=== PATIENT | female | born 2000 | race Two or more races ===

== ENCOUNTER 2020-03-24 15:34 | Outpatient (REF) | payer OTHER, SELFPAY ==
[2020-03-24 17:25] LABS: Hemoglobin 11.1 g/dl (12.0-16.0); Mean Corpuscular Hemoglobin 24.4 pg (27.0-33.0); Mean Corpuscular Volume 81.5 fL (80-98); Mean Platelet Volume 10.1 fL (9.4-12.3); Platelet Count 449 X10*3/uL (160-400); Red Blood Count 4.54 X10*6/uL (4.20-5.50); Red Cell Distribution Width 17.5 % (11.0-16.0); White Blood Count 15.6 X10*3/uL (4.8-10.8)
[2020-03-24 18:10] LABS: Thyroid Stimulating Hormone 0.76 uIU/mL (0.32-4.0)
[2020-03-25 08:47] LABS: Prolactin 11.7 ng/mL
[2020-03-25 11:09] LABS: BV Int Neg Control Negative (Negative); BV Int Pos Control Positive (Positive)
[2020-03-27 17:22] LABS: DHEA Sulfate 194 mcg/dL (51-321)
[2020-03-30 16:22] LABS: Testosterone, Free 1.9 pg/mL (0.1-6.4); Testosterone, Total 33 ng/dL (2-45)
[2020-04-18 12:42] LABS: CT PCR NOT DETECTED (Not Detect.); NG PCR NOT DETECTED (Not Detect.)
== END 2020-03-24 15:35 | disposition home or self-care (01) ==
LOC: HO.LAB 15:34
PROVIDERS: Visit Provider Advanced Practice Midwife
DX: N93.9 Abnormal uterine and vaginal bleeding, unspecified (principal); N92.1 Excessive and frequent menstruation with irregular cycle; N94.6 Dysmenorrhea, unspecified; Z11.8 Encounter for screening for other infectious and parasitic diseases; Z11.3 Encounter for screening for infections with a predominantly sexual mode of transmission; Z87.42 Personal history of other diseases of the female genital tract
CPT/HCPCS: 36415; 82627; 83498; 84146; 84402; 84403; 84443; 85027; 87480; 87491; 87510; 87591; 87660

== ENCOUNTER 2020-04-28 15:33 | Outpatient (REF) | payer OTHER, SELFPAY ==
--- NOTE | 2020-04-28 15:36 | US_ITS ---
EXAMINATION: US PELVIS COMPLETE CLINICAL INFORMATION: Abnormal uterine/vaginal bleeding. COMPARISON: None TECHNIQUE: Transabdominal and transvaginal imaging of pelvis is performed. FINDINGS: The uterus is retroverted measuring 9.0 cm in length, 4.2 cm in AP and 4.7 cm wide. The uterus has homogeneous echotexture with an endometrial thickness of 0.33 cm. Right ovary measures 3.59 x 2.07 x 2.13 cm and volume 8.29 mL. Previously it measured 5.6 x 4.5 x 4.5 cm. Left ovary measures 5.19 x 2.15 x 2.90 cm and volume 16.94 mL. Previously it measured 3.6 x 2.0 x 2.2 cm. There is a trace amount of free fluid visualized. US/US transvaginal IMPRESSION: Unremarkable uterus and ovaries. Trace amount of free fluid in the cul-de-sac.
--- NOTE | 2020-04-28 15:36 | US_ITS ---
EXAMINATION: US PELVIS COMPLETE CLINICAL INFORMATION: Abnormal uterine/vaginal bleeding. COMPARISON: None TECHNIQUE: Transabdominal and transvaginal imaging of pelvis is performed. FINDINGS: The uterus is retroverted measuring 9.0 cm in length, 4.2 cm in AP and 4.7 cm wide. The uterus has homogeneous echotexture with an endometrial thickness of 0.33 cm. Right ovary measures 3.59 x 2.07 x 2.13 cm and volume 8.29 mL. Previously it measured 5.6 x 4.5 x 4.5 cm. Left ovary measures 5.19 x 2.15 x 2.90 cm and volume 16.94 mL. Previously it measured 3.6 x 2.0 x 2.2 cm. There is a trace amount of free fluid visualized. US/US pelvic complete IMPRESSION: Unremarkable uterus and ovaries. Trace amount of free fluid in the cul-de-sac.
== END 2020-04-28 15:34 | disposition home or self-care (01) ==
LOC: HO.HMGCX 15:33
PROVIDERS: Visit Provider Advanced Practice Midwife
DX: N93.8 Other specified abnormal uterine and vaginal bleeding (principal)
CPT/HCPCS: 76830; 76856

== ENCOUNTER → 2020-05-12 11:17 | Outpatient (BNVA) | payer OTHER, SELFPAY | PROVIDERS: Visit Provider Advanced Practice Midwife ==

== ENCOUNTER 2020-06-19 09:18 | Outpatient (REF) | payer OTHER, SELFPAY | END 2020-06-19 09:19 | disposition home or self-care (01) | LOC: HO.MDS 09:18 | PROVIDERS: Visit Provider Internal Medicine Medical Oncology | DX: D50.9 Iron deficiency anemia, unspecified (principal) | CPT/HCPCS: 96365; J1439 ==

== ENCOUNTER 2020-06-25 07:54 | Outpatient (REF) | payer OTHER, SELFPAY | END 2020-06-25 07:55 | disposition home or self-care (01) | LOC: HO.MDS 07:54 | PROVIDERS: Visit Provider Internal Medicine Medical Oncology | DX: D50.9 Iron deficiency anemia, unspecified (principal) | CPT/HCPCS: 96365; J1439 ==

== ENCOUNTER → 2020-08-19 15:15 | Outpatient (BNVA) | payer OTHER, SELFPAY | PROVIDERS: Visit Provider Advanced Practice Midwife ==

== ENCOUNTER 2020-09-14 10:15 | Outpatient (REF) | payer OTHER, SELFPAY | END 2020-09-14 10:16 | disposition home or self-care (01) | LOC: HO.LAB 10:15 | PROVIDERS: Visit Provider Nurse Practitioner Family | DX: J02.9 Acute pharyngitis, unspecified (principal); H66.003 Acute suppurative otitis media without spontaneous rupture of ear drum, bilateral; R09.81 Nasal congestion; Z20.822 Contact with and (suspected) exposure to COVID-19 | CPT/HCPCS: U0003; U0005 ==

== ENCOUNTER 2020-12-29 14:41 | Outpatient (REF) | payer OTHER, SELFPAY | END 2020-12-29 14:42 | disposition home or self-care (01) | LOC: HO.HMGCLDS 14:41 | PROVIDERS: PCP Internal Medicine; Visit Provider Internal Medicine | DX: Z20.822 Contact with and (suspected) exposure to COVID-19 (principal) | CPT/HCPCS: C9803; U0003; U0005 ==

== ENCOUNTER 2021-02-10 13:06 | Outpatient (REF) | payer OTHER, SELFPAY ==
[2021-02-11 05:47] LABS: CT PCR NOT DETECTED (Not Detect.); NG PCR NOT DETECTED (Not Detect.)
[2021-02-11 11:04] LABS: BV Int Neg Control Negative (Negative); BV Int Pos Control Positive (Positive)
== END 2021-02-10 13:07 | disposition home or self-care (01) ==
LOC: HO.LAB 13:06
PROVIDERS: PCP Internal Medicine; Visit Provider Advanced Practice Midwife
DX: Z30.011 Encounter for initial prescription of contraceptive pills (principal); N92.6 Irregular menstruation, unspecified; Z20.2 Contact with and (suspected) exposure to infections with a predominantly sexual mode of transmission
CPT/HCPCS: 87480; 87491; 87510; 87591; 87660; 88142

== ENCOUNTER 2021-04-13 13:47 | Outpatient (REF) | payer OTHER, SELFPAY ==
[2021-04-13 16:35] LABS: MANUAL DIFF FLAG NO
[2021-04-13 16:40] LABS: Basophils Percent Auto 0.3 % (0-2); Eosinophils Absolute Auto 0.3 X10*3/uL (0.0-0.4); Eosinophils Percent Auto 2.4 % (0-4); Hematocrit 41.1 % (37.0-47.0); Hemoglobin 13.3 g/dl (12.0-16.0); Imm Gran Abs Auto 0.06 X10*3/uL (0.00-0.03); Imm Gran Pct Auto 0.5 % (0.0-0.4); Lymphocytes Absolute Auto 3.7 X10*3/uL (1.2-4.9); Lymphocytes Percent Auto 31.6 % (20-40); Mean Corpuscular HGB Conc 32.4 g/dl (31.0-35.0); Mean Corpuscular Hemoglobin 30.1 pg (27.0-33.0); Mean Platelet Volume 9.8 fL (9.4-12.3); Monocytes Absolute Auto 0.9 X10*3/uL (0.1-1.2); Monocytes Percent Auto 7.3 % (2-11); Neutrophils Absolute Auto 6.8 x10*3/uL (2.0-8.3); Neutrophils Percent Auto 57.9 % (45-73); Platelet Count 418 X10*3/uL (160-400); Red Blood Count 4.42 X10*6/uL (4.20-5.50); Red Cell Distribution Width 12.2 % (11.0-16.0); White Blood Count 11.7 X10*3/uL (4.8-10.8)
[2021-04-13 17:04] LABS: Alanine Aminotransferase 14 U/L (0-31); Albumin Level 4.4 g/dL (3.5-5.0); Alkaline Phosphatase 67 U/L (39-117); Anion Gap 12 (12-20); Aspartate Amino Transferase 14 U/L (5-31); Bilirubin Total 0.4 mg/dL (0.0-1.0); Blood Urea Nitrogen 19 mg/dL (9-16); Calcium 9.8 mg/dL (8.4-10.2); Carbon Dioxide 26 mmol/L (22-29); Chloride 103 mmol/L (96-108); Estimated Glomerular Filt Rate > 60; Glucose Random 72 mg/dL (60-115); Iron 82 mcg/dL (30-160); Percent Iron Saturation 21 % (15-50); Potassium 4.2 mmol/L (3.3-5.1); Sodium 137 mmol/L (135-145); Total Iron Binding Capacity 400 mcg/dL (228-428); Total Protein 7.8 g/dL (6.5-8.0); Unsaturated Iron Binding 318 ug/dL
[2021-04-13 17:24] LABS: TSH reflex Free T4 1.72 uIU/mL (0.32-4.0); Vitamin D 25-OH Total 16.9 ng/mL (>30)
[2021-04-13 17:35] LABS: Folate 10.8 ng/mL (> or = 4.0); Vitamin B12 465 pg/mL (200-900)
== END 2021-04-13 13:48 | disposition home or self-care (01) ==
LOC: HO.HMGCLDS 13:47
PROVIDERS: PCP Internal Medicine; Visit Provider Internal Medicine
DX: N92.0 Excessive and frequent menstruation with regular cycle (principal); R42 Dizziness and giddiness; R55 Syncope and collapse; G44.009 Cluster headache syndrome, unspecified, not intractable; R53.83 Other fatigue; Z87.42 Personal history of other diseases of the female genital tract
CPT/HCPCS: 36415; 80053; 82306; 82607; 82746; 83540; 84443; 85025

== ENCOUNTER → 2021-06-17 13:47 | Outpatient (BNVA) | payer OTHER, SELFPAY | PROVIDERS: Visit Provider Advanced Practice Midwife ==

== ENCOUNTER 2021-11-06 11:29 | Emergency (ER) | payer OTHER, SELFPAY ==
[2021-11-06 12:13] VITALS: BP 127/90; PULSE 77; RESP 18; TEMP 36.9; O2SAT 98; BMI 28.8
[2021-11-06 12:56] LABS: MANUAL DIFF FLAG NO
[2021-11-06 12:57] LABS: Basophils Percent Auto 0.2 % (0-2); Eosinophils Absolute Auto 0.3 X10*3/uL (0.0-0.4); Eosinophils Percent Auto 2.7 % (0-4); Hematocrit 42.2 % (37.0-47.0); Hemoglobin 13.6 g/dl (12.0-16.0); Imm Gran Abs Auto 0.04 X10*3/uL (0.00-0.03); Imm Gran Pct Auto 0.3 % (0.0-0.4); Lymphocytes Absolute Auto 3.5 X10*3/uL (1.2-4.9); Lymphocytes Percent Auto 29.7 % (20-40); Mean Corpuscular HGB Conc 32.2 g/dl (31.0-35.0); Mean Corpuscular Hemoglobin 29.3 pg (27.0-33.0); Mean Corpuscular Volume 90.9 fL (80.0-98.0); Mean Platelet Volume 8.9 fL (9.4-12.3); Monocytes Absolute Auto 0.9 X10*3/uL (0.1-1.2); Monocytes Percent Auto 7.6 % (2-11); Neutrophils Absolute Auto 6.9 x10*3/uL (2.0-8.3); Neutrophils Percent Auto 59.5 % (45-73); Platelet Count 339 X10*3/uL (160-400); Red Blood Count 4.64 X10*6/uL (4.20-5.50); Red Cell Distribution Width 12.8 % (11.0-16.0); White Blood Count 11.7 X10*3/uL (4.8-10.8)
[2021-11-06 13:27] LABS: Anion Gap 15 (12-20); Blood Urea Nitrogen 16 mg/dL (9-16); Calcium 9.6 mg/dL (8.4-10.2); Carbon Dioxide 24 mmol/L (22-29); Chloride 105 mmol/L (96-108); Creatinine Clr Calc Pharmacy 95.5; Estimated Glomerular Filt Rate > 60; Glucose Random 81 mg/dL (60-115); Potassium 4.3 mmol/L (3.3-5.1); Sodium 140 mmol/L (135-145)
== END 2021-11-06 18:41 | disposition left against medical advice (07) ==
PROVIDERS: Emergency Provider Emergency Medicine; PCP Internal Medicine
DX: R20.0 Anesthesia of skin (principal); H53.8 Other visual disturbances
CPT/HCPCS: 36415; 80048; 85025; 99281; 99283

== ENCOUNTER 2022-01-12 12:54 | Emergency (ER) | payer OTHER, SELFPAY ==
[2022-01-12 14:13] VITALS: BP 125/80; PULSE 71; RESP 16; TEMP 36.4; O2SAT 99; BMI 29.8
== END 2022-01-12 18:59 | disposition left against medical advice (07) ==
PROVIDERS: Emergency Provider Emergency Medicine; PCP Internal Medicine
DX: M54.50 Low back pain, unspecified (principal)
CPT/HCPCS: 99281

== ENCOUNTER 2022-02-07 11:49 | Outpatient (REF) | payer OTHER, SELFPAY ==
[2022-02-07 13:42] LABS: HCG Quantitative < 2 mIU/mL; Thyroid Stimulating Hormone 0.53 uIU/mL (0.32-4.0)
[2022-02-07 14:40] LABS: CT PCR NOT DETECTED (Not Detect.); NG PCR NOT DETECTED (Not Detect.)
[2022-02-08 12:37] LABS: BV Int Neg Control Negative (Negative); BV Int Pos Control Positive (Positive)
== END 2022-02-07 11:50 | disposition home or self-care (01) ==
LOC: HO.LAB 11:49
PROVIDERS: PCP Internal Medicine; Visit Provider Advanced Practice Midwife
DX: Z01.419 Encounter for gynecological examination (general) (routine) without abnormal findings (principal); D64.9 Anemia, unspecified; N92.0 Excessive and frequent menstruation with regular cycle; N93.9 Abnormal uterine and vaginal bleeding, unspecified; R42 Dizziness and giddiness; Z87.42 Personal history of other diseases of the female genital tract
CPT/HCPCS: 84443; 84702; 87480; 87491; 87510; 87591; 87660

== ENCOUNTER 2022-07-24 09:08 | Emergency (ER) | payer SELFPAY ==
--- NOTE | ~2022-07-24 | US_ITS ---
EXAMINATION: US PELVIS CLINICAL INFORMATION: Right lower quadrant pain left adnexal cyst on CT. COMPARISON: None available. TECHNIQUE: Ultrasound of the pelvis is performed using both transabdominal and transvaginal transducers along with Doppler. Transvaginal imaging is performed due to inadequate visualization transabdominally. FINDINGS: Uterus: The uterus is anteverted and measures 8.9 x 3.9 x 5.8 cm. The double wall endometrial thickness is 12 mm. The uterus is smooth in contour and has normal myometrial echogenicity. No visible fibroid. Adnexa: Both ovaries are visualized. There is normal color flow to the adnexa. There is no ovarian torsion. There is no pelvic ascites or fluid collection. Right ovary measures 3.1 x 2.1 x 2.1 cm. 6.7 x 6.1 x 3.0 cm, smooth, oblong, cystic left adnexal structure, similar compared with 07/24/2022. Peripheral flow, possibly representing splayed ovarian tissue, equivocal. Small to moderate amount of fluid within the pelvis. US/US pelvic and transvaginal IMPRESSION: 6.7 x 6.1 x 3.0 cm, smooth, oblong, cystic left adnexal structure, similar compared with 07/24/2022. Peripheral flow, possibly representing splayed ovarian tissue, equivocal. Small to moderate amount of fluid within the pelvis.
--- NOTE | ~2022-07-24 | CT_ITS ---
EXAMINATION: CT ABDOMEN AND PELVIS WITH CONTRAST CLINICAL INFORMATION: Right lower quadrant abdominal pain. COMPARISON: Most recent pelvic ultrasound dated 04/28/2020. TECHNIQUE: Multidetector volumetric images were obtained from the superior aspect of the liver through the pubic symphysis following administration 85 mL of Omnipaque 350 intravenous contrast. Sagittal and coronal reformatted images were obtained on the technologist's workstation. Oral contrast: No This CT examination was performed using dose optimization techniques as appropriate, variously including the following: *Automated exposure control *Adjustment of mA and/or kV according to patient size (this includes techniques or standardized protocols for targeted exams where dose is matched to indication/reason for exam; i.e. extremities or head) *Use of iterative reconstruction technique DLP: 436 mGy-cm FINDINGS: LUNG BASES: The visualized lung bases are unremarkable. LIVER, GALLBLADDER, AND BILIARY TREE: The liver is normal in size, shape, and attenuation. No focal hepatic lesion or biliary ductal dilatation is present. The gallbladder is unremarkable with no evidence of radiopaque gallstones, gallbladder wall thickening, or obvious pericholecystic inflammatory changes. PANCREAS: Unremarkable. SPLEEN: Unremarkable. ADRENAL GLANDS: Unremarkable. KIDNEYS AND URETERS: The kidneys are normal in size, shape, and attenuation. No hydronephrosis, hydroureter, or calculi seen. No perinephric stranding. BLADDER: Unremarkable. GASTROINTESTINAL TRACT: No small or large bowel obstruction. No bowel wall thickening or inflammatory change. The appendix is partially visualized within the pelvic free fluid. No appendiceal dilatation. ABDOMINAL WALL: No significant hernia is appreciated. LYMPH NODES: No significant lymphadenopathy. VASCULAR: Unremarkable. PELVIC VISCERA: Unremarkable uterus. Unremarkable right adnexa. The left adnexa appears to demonstrate a thin-walled cyst measuring up to 6.4 cm. Moderate, simple-appearing pelvic free fluid which tracks proximally within the paracolic gutters into the upper abdomen. OSSEOUS STRUCTURES: Unremarkable. CT/CT abdomen pelvis w IV con IMPRESSION: 1. Moderate, simple-appearing pelvic free fluid which tracks proximally within the paracolic gutters into the upper abdomen. Thin-walled left adnexal cyst measuring up to 6.4 cm. Unremarkable right adnexa. Unremarkable uterus. Pelvic ultrasound is recommended to help further evaluate. 2. Partially visualized appendix within the pelvic free fluid. No appendiceal dilatation or inflammatory change to suggest acute appendicitis. 3. No small or large bowel obstruction. No bowel wall thickening or inflammatory change. Fleischner guidelines were followed.
[2022-07-24 09:28] VITALS: BP 115/75; PULSE 75; RESP 16; TEMP 36.6; O2SAT 99; BMI 27.8
[2022-07-24 09:43] LABS: MANUAL DIFF FLAG NO
[2022-07-24 09:45] LABS: Basophils Percent Auto 0.2 % (0-2); Eosinophils Absolute Auto 0.2 X10*3/uL (0.0-0.4); Hematocrit 40.6 % (37.0-47.0); Imm Gran Abs Auto 0.06 X10*3/uL (0.00-0.03); Imm Gran Pct Auto 0.3 % (0.0-0.4); Lymphocytes Absolute Auto 2.9 X10*3/uL (1.2-4.9); Lymphocytes Percent Auto 16.1 % (20-40); Mean Corpuscular Volume 90.4 fL (80.0-98.0); Mean Platelet Volume 9.5 fL (9.4-12.3); Monocytes Absolute Auto 1.2 X10*3/uL (0.1-1.2); Monocytes Percent Auto 6.5 % (2-11); Neutrophils Absolute Auto 13.9 x10*3/uL (2.0-8.3); Neutrophils Percent Auto 75.9 % (45-73); Platelet Count 356 X10*3/uL (160-400); Red Blood Count 4.49 X10*6/uL (4.20-5.50); Red Cell Distribution Width 13.4 % (11.0-16.0); White Blood Count 18.3 X10*3/uL (4.8-10.8)
[2022-07-24 10:09] LABS: Alanine Aminotransferase 16 U/L (0-31); Albumin Level 4.1 g/dL (3.5-5.0); Alkaline Phosphatase 61 U/L (39-117); Anion Gap 12 (12-20); Aspartate Amino Transferase 22 U/L (5-31); Bilirubin Total 1.1 mg/dL (0.0-1.0); Blood Urea Nitrogen 16 mg/dL (9-16); Calcium 9.3 mg/dL (8.4-10.2); Carbon Dioxide 23 mmol/L (22-29); Chloride 108 mmol/L (96-108); Creatinine Clr Calc Pharmacy 102.9; Estimated Glomerular Filt Rate > 60; Glucose Random 89 mg/dL (60-115); Lipase 9 U/L (8-78); Potassium 4.2 mmol/L (3.3-5.1); Sodium 139 mmol/L (135-145); Total Protein 6.9 g/dL (6.5-8.0)
[2022-07-24 10:12] LABS: HCG Quantitative < 2 mIU/mL
--- NOTE | 2022-07-24 10:30 | ED_ITS ---
HPI - Abdominal Pain General Chief Complaint: Abdominal Pain Stated Complaint: lower abd pain/nausea Time Seen by Provider: 07/24/22 10:12 Source: patient and RN notes reviewed Mode of arrival: ambulatory Limitations: no limitations History of Present Illness HPI narrative: This is a 21-year-old female, with a past medical history of anxiety and depression, menorrhagia, and ovarian cyst, who presents to the emergency department today with complaints of acute abdominal pain since 6:00 a.m. this morning. Patient reports that yesterday she was feeling well, went out to dinner at [employer], where she had a steak and 1 alcoholic beverage, she reports that last night she developed chills, vomited once and had 2 episodes of diarrhea, but did not have any abdominal pain. She states that this morning at 6:00 a.m. she woke up with sudden periumbilical abdominal pain and right lower quadrant pain. She states that she tried getting up from her bed but was unable to do so due to the pain. She denies taking any medications to treat her symptoms. She reports associated nausea, no vomiting this morning. She denies history of similar symptoms. Her last menses was 3 weeks ago, she denies chance of , no concern for STIs at this time. She is sexually active with her boyfriend, is not on control. No new sexual partners. Denies any vaginal discharge or bleeding, dysuria, hematuria, urinary urgency frequency. No other complaints or concerns at this time. MD elicited complaint: abdominal pain Onset (ago): hour(s) Pain Consistency: constant Location: periumbilical and RLQ Severity: severe Quality: cramping and stabbing Radiation: none Migration to: no migration Exacerbating factors: movement Relieving factors: nothing Associated symptoms: nausea, vomiting (Yesterday), diarrhea (2 episodes yesterday) and chills Related Data Previous Rx's Medication Instructions Recorded norethindrone acetate 1 mg-ethinyl 1 tab PO DAILY #84 tabs 06/17/21 estradiol 20 mcg tablet () doxycycline hyclate 100 mg capsule 100 mg PO BID #28 caps 07/24/22 Allergies Allergy/AdvReac Type Severity Reaction Status Date / Time penicillamine Allergy Unknown facial Verified 07/24/22 09:31 swelling Penicillins [PENICILLINS] Allergy Unknown RASH Verified 07/24/22 09:31 Review of Systems Review of Systems Constitutional: No Weight loss, No Fever, +Chills, No Night Sweats, No Fatigue, No Malaise ENT/Mouth: No Hearing loss, No Ear Pain, No Nasal Congestion, No Sinus Pain, No Hoarseness, No sore throat, No Rhinorrhea, No Swallowing Difficulty Eyes: No Eye Pain, No Swelling, No Redness, No Foreign Body, No Discharge, No Vision Changes Cardiovascular: No Chest Pain, No SOB, No Dyspnea on Exertion, No Orthopnea, No Edema, No Palpitations Respiratory: No Cough, No Sputum, No Wheezing, No Smoke Exposure, No Dyspnea Gastrointestinal: +Nausea, +Vomiting, +Diarrhea, No Constipation, +Abdominal pain, No Hematochezia, No Melena Genitourinary: No irregular bleeding, No Dysuria, No Urinary Frequency, No Hematuria, No Urinary Incontinence/retention, No Urgency, No Flank Pain, No Urinary Flow Changes, No Hesitancy Musculoskeletal: No joint pain, No Myalgias, No Joint Swelling Skin: No Skin Lesions, No rash Neuro: No Weakness, No Numbness, No Paresthesias, No Loss of Consciousness, No Dizziness, No Headache Psych: No Anxiety/Panic, No Depression, No SI/HI/AH/VH, No Social Issues, Heme/Lymph: No Bruising, No Bleeding,No Lymphadenopathy Endocrine: No Polyuria, No Polydipsia, No Temperature Intolerance Yes all other systems are reviewed and are negative Constitutional: Reports as per [facility] Past Medical History Medical History (Updated 07/24/22 @ 15:19 by SARIKA Daugherty) Anxiety and depression Cyst History of vitamin D deficiency Lactose intolerance in adult Menorrhagia Migraine without aura Near syncope Normochromic normocytic anemia Social anxiety disorder Surgical History No significant past surgical history Family History Family History (Updated 02/22/22 @ 00:32 by Regina Zaman MD) Father Diabetes Mother Essential hypertension Substance use disorder Sister Mental health disorder Maternal Aunt Autistic disorder Other No family history of cancer Social History Social History Household Members: None Housing: Apartment Are you a primary landcare facilitator to a significant other at home: No Do you presently have visiting nurse or other home services: No Alcohol intake: never Patient Tobacco Use Status: Never used Tobacco Smoked in Last 30 Days: No e-Cigarette/Vaping Use: Never Used Use of substances other than those prescribed or required for medical reasons: Yes Substance Use Type: Marijuana Advance Directives: No Advance Directives Information Provided: No Patient : No service: No Current occupational status: employed Sexual orientation: Straight/Heterosexual Gender identity: Female Cognitive needs: No Hearing needs: No Vision needs: No Physical Exam ED Vital Signs: Vital Signs - 24 hr 07/24/22 09:28 07/24/22 11:42 07/24/22 14:21 Temperature 97.9 F 98.1 F Pulse Rate 75 64 59 Respiratory Rate 16 20 12 Blood Pressure 115/75 114/73 122/66 Pulse Oximetry 99 100 100 Oxygen Delivery Method Room Air Room Air Room Air 07/24/22 16:00 Temperature 98.2 F Pulse Rate 65 Respiratory Rate 16 Blood Pressure 107/62 Pulse Oximetry 98 Oxygen Delivery Method Room Air BMI result Body Mass Index 27.8 Const General: cooperative, comfortable and no acute distress Orientation/consciousness: patient oriented x3 Limitations: no limitations HENMT Head: Yes normal to inspection, Yes normocephalic and Yes atraumatic Ears: hearing grossly normal bilaterally General nose exam: Normal external nose present Face and sinus: Yes normal facial exam Mouth: Normal oral and palatal mucosa present, oropharynx normal and moist mucous membranes Throat: Yes posterior oropharynx normal Eyes General: appearance normal, both eyes and all related structures Eyelids: Yes eyelids normal Conjunctivae: conjunctivae normal Sclerae: sclerae normal Pupils: Equal, round and reactive pupils present EOM: EOMs intact bilaterally Neck Neck: Yes normal visual inspection, Yes full ROM and Yes no lymphadenopathy Lymphatic: no lymphadenopathy noted Chest Chest palpation & inspection: normal inspection of the chest Resp Effort & Inspection: normal respiratory effort and able to speak in complete sentences Auscultation: clear to auscultation bilaterally, no crackles, no rales, no rhonchi and no wheezes Cardio Rate: regular rate Rhythm: regular rhythm Heart sounds: S1 normal heart sound present and S2 normal heart sound present GI Other: Abdomen is soft, with tenderness to light palpation over the periumbilical and right lower quadrant. Pain overlying McBurney's point. + guarding. + obturator sign. Negative Miller sign Inspection: Yes normal to inspection Other: Bimanual vaginal exam with cervical motion tenderness, and tenderness with pressure in the right lower abdomen. Cervical os is closed. normal appearance of the cervix, no abnormal vaginal discharge or bleeding. No tenderness on the left. General: Yes Bimanual renal exam normal bilaterally External Female Exam: normal external appearance, normal appearance of the urethra, No external swelling, No lesion, No External ecchymosis (female) and No urethral discharge Speculum Exam - Vagina: normal appearance of the vagina, not erythematous and no swelling Speculum Exam - Cervix: normal appearance of the cervix Skin General skin exam: no rashes or lesions noted Trauma: no lacerations or abrasions Wounds: no wounds Neuro General: patient oriented x3 and moves all extremities Cranial nerves: Yes Equal, round and reactive pupils present Extrem General: Yes normal to inspection Right upper extremity: normal to inspection Left upper extremity: normal to inspection Right lower extremity: normal to inspection Left lower extremity: normal to inspection Course Reevaluation(s) Reevaluation #1: Patient reports that her pain is improving after the morphine. CT abdomen and pelvis reviewed as Moderate, simple-appearing pelvic free fluid which tracks proximally within the paracolic gutters into the upper abdomen. Thin-walled leftadnexal cyst measuring up to 6.4 cm. Unremarkable right adnexa. Unremarkable uterus. Pelvic ultrasound is recommended to help further evaluate. Partially visualized appendix within the pelvic free fluid. Noappendiceal dilatation or inflammatory change to suggest acute appendicitis. She reports her current pain is a 4/10, with movement it does increase. Will obtain ultrasound of the pelvis for further evaluation. Ultrasound pelvic still pending at this time. Toradol 15 mg IM ordered. Time: 12:40 Reevaluation #2: Pelvic/transvaginal ultrasound obtained revealing a 6.7 x 6.1 x 3.0 cm smooth oblong cystic left adnexal structure with small to moderate amount of fluid within the pelvis. Pelvic exam performed, patient does have cervical motion tenderness with tenderness in the right lower quadrant. Patient's symptoms consistent with a potential ruptured cyst but concern for PID given physical examination. Patient has no concerns for STIs however due to clinical examination findings, will treat as PID with ceftriaxone and doxycycline. Pt admits to having PCN allergy with rash, will administer and watch for 20-30 minutes post administration for any adverse reactions. Patient does not have an OBGYN to follow-up with, given there be referral. Advised patient to return with any new or worsening symptoms. Patient would like to be discharged home. Patient stable for discharge Time: 15:58 Reevaluation #3: Patient has no reaction, patient stable for discharge. Time: 16:24 Medical Decision Making Medical Decision Making [facility] Narrative: This is a 21-year-old female, with a past medical history depression, anxiety, and ovarian cyst, who presents emergency department today for evaluation of abdominal pain which started at 6:00 a.m. this morning. On examination, patient's vital signs are within normal limits, tenderness to palpation in the periumbilical and right lower quadrant. Based on examination findings and clinical presentation high suspicion for acute appendicitis. Labs, UA, CT abdomen and pelvis with IV contrast ordered. Patient medicated with 1 L of IV fluids, IV Zofran, and IV morphine. Differential Diagnosis Differential Diagnoses: The differential diagnosis associated with the presentation includes Pelvic inflammatory disease, gonorrhea, chlamydia, Acute appendicitis, ectopic , ovarian torsion, ovarian cyst Admission/Observation Consideration of admission/observation: Escalation of care including admission /observation considered Lab Data [facility] Lab Attestation statement: I reviewed the patient's lab results. Leukocytosis at 18.3, negative beta HCG 07/24/22 09:39 07/24/22 09:39 Labs: Lab Results 07/24/22 07/24/22 07/24/22 Range/Units 09:39 09:39 14:20 WBC 18.3 H (4.8-10.8) X10*3/uL RBC 4.49 (4.20-5.50) X10*6/uL Hgb 13.0 (12.0-16.0) g/dl Hct 40.6 (37.0-47.0) % MCV 90.4 (80.0-98.0) fL MCH 29.0 (27.0-33.0) pg MCHC 32.0 (31.0-35.0) g/dl RDW 13.4 (11.0-16.0) % Plt Count 356 (160-400) X10*3/uL MPV 9.5 (9.4-12.3) fL Immature Gran % (Auto) 0.3 (0.0-0.4) % Neut % (Auto) 75.9 H (45-73) % Lymph % (Auto) 16.1 L (20-40) % Glynn % (Auto) 6.5 (2-11) % Eos % (Auto) 1.0 (0-4) % Baso % (Auto) 0.2 (0-2) % Lymph # (Auto) 2.9 (1.2-4.9) X10*3/uL Glynn # (Auto) 1.2 (0.1-1.2) X10*3/uL Eos # (Auto) 0.2 (0.0-0.4) X10*3/uL Baso # (Auto) 0.0 (0.0-0.2) X10*3/uL Abs Immat Gran (auto) 0.06 H (0.00-0.03) X10*3/uL Absolute Neuts (auto) 13.9 H (2.0-8.3) x10*3/uL Absolute Nucleated RBC 0.000 (0.0-0.012) X10*3/uL Nucleated RBC % (auto) 0.0 (0.0-0.2) /100WBC Sodium 139 (135-145) mmol/L Potassium 4.2 (3.3-5.1) mmol/L Chloride 108 (96-108) mmol/L Carbon Dioxide 23 (22-29) mmol/L Anion Gap 12 (12-20) BUN 16 (9-16) mg/dL Creatinine 0.78 (0.5-1.4) mg/dL Estim Creat Clear Calc 102.9 Estimated GFR > 60 Random Glucose 89 (60-115) mg/dL Calcium 9.3 (8.4-10.2) mg/dL Total Bilirubin 1.1 H (0.0-1.0) mg/dL AST 22 (5-31) U/L ALT 16 (0-31) U/L Alkaline Phosphatase 61 (39-117) U/L Total Protein 6.9 (6.5-8.0) g/dL Albumin 4.1 (3.5-5.0) g/dL Lipase 9 (8-78) U/L Beta HCG, Quant < 2 mIU/mL Urine Color Yellow Urine Appearance Clear Urine pH 5.5 (5.0-9.0) Ur Specific Thayer >= 1.030 H (1.005-1.025) Urine Protein Negative (Neg-Trace) mg/dL Urine Glucose (UA) Negative (Negative) mg/dL Urine Ketones 40 (Negative) mg/dL Urine Blood Negative (Negative) Urine Nitrite Negative (Negative) Ur Leukocyte Esterase Negative (Negative) Independent Interpretation I performed an independent interpretation of an: Ultrasound Interpretation: EXAMINATION:? US PELVIS CLINICAL INFORMATION:? Right lower quadrant pain left adnexal cyst on CT. COMPARISON: None available. TECHNIQUE: Ultrasound of the pelvis is performed using both transabdominal and transvaginal transducers along with Doppler. Transvaginal imaging is performed due to inadequate visualization transabdominally. FINDINGS: Uterus: The uterus is anteverted and measures 8.9 x 3.9 x 5.8 cm. The double wall endometrial thickness is 12 mm.? The uterus is smooth in contour and has normal myometrial echogenicity. ? No visible fibroid. Adnexa: Both ovaries are visualized. There is normal color flow to the adnexa. There is no ovarian torsion.? There is no pelvic ascites or fluid collection. Right ovary measures 3.1 x 2.1 x 2.1 cm. 6.7 x 6.1 x 3.0 cm, smooth, oblong, cystic left adnexal structure, similar compared with 07/24/2022. Peripheral flow, possibly representing splayed ovarian tissue, equivocal. Small to moderate amount of fluid within the pelvis. US/US pelvic and transvaginal IMPRESSION: ? 6.7 x 6.1 x 3.0 cm, smooth, oblong, cystic left adnexal structure, similar compared with 07/24/2022. Peripheral flow, possibly representing splayed ovarian tissue, equivocal. ? Small to moderate amount of fluid within the pelvis. ? Dictated By: Adria Camara FINDINGS: LUNG BASES: The visualized lung bases are unremarkable.? LIVER, GALLBLADDER, AND BILIARY TREE: The liver is normal in size, shape, and attenuation. No focal hepatic lesion or biliary ductal dilatation is present. The gallbladder is unremarkable with no evidence of radiopaque gallstones, gallbladder wall thickening, or obvious pericholecystic inflammatory changes.? PANCREAS: Unremarkable.? SPLEEN: Unremarkable.? ADRENAL GLANDS: Unremarkable.? KIDNEYS AND URETERS: The kidneys are normal in size, shape, and attenuation. No hydronephrosis, hydroureter, or calculi seen. No perinephric stranding. BLADDER: Unremarkable.? GASTROINTESTINAL TRACT: No small or large bowel obstruction. No bowel wall thickening or inflammatory change. The appendix is partially visualized within the pelvic free fluid. No appendiceal dilatation.? ABDOMINAL WALL: No significant hernia is appreciated.? LYMPH NODES: No significant lymphadenopathy. VASCULAR: Unremarkable. PELVIC VISCERA: Unremarkable uterus. Unremarkable right adnexa. The left adnexa appears to demonstrate a thin-walled cyst measuring up to 6.4 cm. Moderate, simple-appearing pelvic free fluid which tracks proximally within the paracolic gutters into the upper abdomen.? OSSEOUS STRUCTURES: Unremarkable.? CT/CT abdomen pelvis w IV con IMPRESSION: 1. Moderate, simple-appearing pelvic free fluid which tracks proximally within the paracolic gutters into the upper abdomen. Thin-walled left adnexal cyst measuring up to 6.4 cm. Unremarkable right adnexa. Unremarkable uterus. Pelvic ultrasound is recommended to help further evaluate. ? 2. Partially visualized appendix within the pelvic free fluid. No appendiceal dilatation or inflammatory change to suggest acute appendicitis. ? 3. No small or large bowel obstruction. No bowel wall thickening or inflammatory change. ? Fleischner guidelines were followed. Dictated By: Leighton Parmar MD Radiology Impression Discussion of test interpretation with radiology: I have reviewed the radiologist's reading. External Record Review External record reviewed: Inpatient record, Office record, Outpatient record, Prior outpatient labs, Prior outpatient radiology, Primary care record and Outside ED record Medications Administered Discontinued Medications Generic Name Dose Route Start Last Admin Trade Name Freq PRN Reason Stop Dose Admin Ceftriaxone Sodium 500 mg/ 0 mg 07/24/22 15:23 07/24/22 16:02 Lidocaine HCl 1 ml IM 07/24/22 15:24 1 kit ONCE ONE Administration Sodium Chloride 1,000 mls @ 999 mls/hr 07/24/22 10:24 07/24/22 13:13 Ns IVCONT 07/24/22 11:24 Infused .Q1H1M ONE Infusion Iohexol 100 ml 07/24/22 11:01 07/24/22 11:02 Iohexol 350 Mg/Ml 100 Ml Infus..Btl IV 07/24/22 11:02 85 ml ONCE ONE Administration Ketorolac Tromethamine 15 mg 07/24/22 13:47 07/24/22 14:37 Ketorolac Tromethamine 15 Mg/Ml Vial IVPUSH 07/24/22 13:48 15 mg ONCE ONE Administration Morphine Sulfate 2 mg 07/24/22 10:24 07/24/22 10:37 Morphine Sulfate 2 Mg/Ml Cartridge IVPUSH 07/24/22 10:25 2 mg ONCE ONE Administration Protocol Ondansetron HCl 4 mg 07/24/22 10:24 07/24/22 10:37 Ondansetron Hcl 4 Mg/2 Ml Vial IVPUSH 07/24/22 10:25 4 mg ONCE ONE Administration Discharge Plan Discharge Clinical Impression: Abdominal pain Patient Disposition: Home, Self-Care Instructions: Acute Abdominal Pain (ED) Additional Instructions: Take ibuprofen as needed for your pain. Take antibiotic as prescribed, finish the entire course. We are sending swabs for further testing, we will call you with any positive results. We had also treated you with ceftriaxone. Your CT scan today showed a moderate, simple appearing pelvic free fluid, which could be due to a ruptured a cyst. It also showed an adnexal cyst measuring up to 6.[address] abdomen did not show evidence of appendicitis. The ultrasound revealed same findings. Please drink plenty of fluids get plenty of rest. You may apply a warm compress to her abdomen for relief. Please follow-up with an OBGYN regarding the symptoms and findings, I have given you a referral today. If any new or worsening symptoms occur please return for re-evaluation. Prescriptions: New doxycycline hyclate 100 mg capsule 100 mg PO BID Qty: 28 0RF No Action norethindrone ac-eth estradiol [04/29 (21)] 1-20 mg-mcg tablet 1 tab PO DAILY Qty: 84 3RF Referrals: Tremaine Mensah MD [Physician] - Interventions: ED Discharge Assessment Last Done: 07/24/22 16:26 Discharge Date/Time: 07/24/22 16:27
[2022-07-24] MEDS: 0.9 % Sodium Chloride 1,000 ML 999 ML IVCONT (10:37)
[2022-07-24] MEDS: ondansetron HCL 4 MG/2 ML VIAL IVPUSH (10:37)
[2022-07-24] MEDS: Morphine Sulfate 2 MG/ML CARTRIDGE IVPUSH (10:37)
[2022-07-24] MEDS: iohexoL 350 MG/ML 100 ML INFUS..BTL IV (11:02)
[2022-07-24 11:42] VITALS: BP 114/73; PULSE 64; RESP 20; TEMP 36.7; O2SAT 100
--- NOTE | 2022-07-24 11:45 | PC.NURSE ---
pt resting quietly in stretcher, watching tv, in no apparent distress. pt sts pain has gone down and medication effective. rr even/unlabored. vss. wctm
[2022-07-24 14:21] VITALS: BP 122/66; PULSE 59; RESP 12; O2SAT 100
[2022-07-24 14:27] LABS: Appearance Urine Clear; Color Urine Yellow; Glucose Urine UA Negative (Negative); Leukocyte Esterase Urine Negative (Negative); Nitrite Urine Negative (Negative); PH 5.5 (5.0-9.0); Specific Gravity - Urine >= 1.030 (1.005-1.025); Urine Blood Negative (Negative); Urine Ketones 40 mg/dL (Negative); Urine Protein Negative (Neg-Trace)
[2022-07-24] MEDS: Ketorolac Tromethamine 15 MG/ML VIAL IVPUSH (14:37)
--- NOTE | 2022-07-24 14:56 | PC.NURSE ---
pt resting quietly in stretcher, watching tv. UCC collected. medicated for pain per mar. no apparent distress. rr even/unlabored. wctm
[2022-07-24 16:00] VITALS: BP 107/62; PULSE 65; RESP 16; TEMP 36.8; O2SAT 98
[2022-07-24] MEDS: cefTRIAXone sodium 500 MG, Lidocaine HCl 1 % MPF 1 ML IM (16:02)
[2022-07-25 00:52] LABS: CT PCR NOT DETECTED (Not Detect.); NG PCR NOT DETECTED (Not Detect.)
[2022-07-25 12:33] LABS: BV Int Neg Control Negative (Negative); BV Int Pos Control Positive (Positive)
== END 2022-07-24 16:27 | disposition home or self-care (01) ==
PROVIDERS: Physician Assistant Medical; Emergency Provider Emergency Medicine
DX: R10.2 Pelvic and perineal pain (principal); R11.2 Nausea with vomiting, unspecified; R10.32 Left lower quadrant pain; R25.2 Cramp and spasm; Z79.899 Other long term (current) drug therapy; Z20.2 Contact with and (suspected) exposure to infections with a predominantly sexual mode of transmission
CPT/HCPCS: 0353U; 36415; 74177; 76830; 76856; 80053; 81003; 83690; 84702; 85025; 87480; 87510; 87660; 96361; 96374; 96375; 99284; 99285; J0696; J1885; J2270; J2405; Q9967

== ENCOUNTER 2023-02-01 11:03 | Emergency (ER) | payer SELFPAY ==
--- NOTE | ~2023-02-01 | US_ITS ---
EXAMINATION: US PELVIS OVARIAN DOPPLER US PELVIS WITH TRANSVAGINAL CLINICAL INFORMATION: Left-sided pelvic pain. COMPARISON: Pelvic ultrasound and CT imaging from 07/24/2022. TECHNIQUE: Ultrasound of the pelvis is performed using both transabdominal and transvaginal transducers along with Doppler. Transvaginal imaging is performed due to inadequate visualization transabdominally. FINDINGS: The uterus has normal contour and echotexture and measures approximately 8.3 x 4.3 x 5.6 cm (cervix to fundus x AP x transverse dimension). The myometrial echotexture is normal. No evidence of uterine leiomyoma. The cervix is normal. The endometrium has normal homogeneous echotexture and measures up to 1.1 cm in AP thickness. On the transvaginal images, the right ovary is 2.8 x 1.5 x 1.7 cm. The left ovary is 5.9 x 4.4 x 5.4 cm and contains a 5 x 4 x 5.6 cm simple cyst. No thick septation or mural nodularity. Color Doppler images with spectral waveforms show presence of normal arterial and venous flow within each ovary. Note that the prior ultrasound from 07/24/2022 showed a simple-appearing cyst in the left ovary measuring up to 5.9 cm maximum dimension. A trace, physiologic amount of simple appearing free fluid is seen within the pelvic cul-de-sac. US/US pelvic ovarian doppler IMPRESSION: Simple cyst of the left ovary measures up to 5.6 cm maximum dimension - a probable benign cyst. Patient is presenting with left-sided pelvic pain. Recommend pelvic ultrasound follow-up (e.g., US follow-up in 3-6 months), if deemed appropriate. Note that a cyst of the left ovary previously measured up to 5.9 cm maximum dimension. No evidence of ovarian torsion.
--- NOTE | ~2023-02-01 | US_ITS ---
EXAMINATION: US PELVIS OVARIAN DOPPLER US PELVIS WITH TRANSVAGINAL CLINICAL INFORMATION: Left-sided pelvic pain. COMPARISON: Pelvic ultrasound and CT imaging from 07/24/2022. TECHNIQUE: Ultrasound of the pelvis is performed using both transabdominal and transvaginal transducers along with Doppler. Transvaginal imaging is performed due to inadequate visualization transabdominally. FINDINGS: The uterus has normal contour and echotexture and measures approximately 8.3 x 4.3 x 5.6 cm (cervix to fundus x AP x transverse dimension). The myometrial echotexture is normal. No evidence of uterine leiomyoma. The cervix is normal. The endometrium has normal homogeneous echotexture and measures up to 1.1 cm in AP thickness. On the transvaginal images, the right ovary is 2.8 x 1.5 x 1.7 cm. The left ovary is 5.9 x 4.4 x 5.4 cm and contains a 5 x 4 x 5.6 cm simple cyst. No thick septation or mural nodularity. Color Doppler images with spectral waveforms show presence of normal arterial and venous flow within each ovary. Note that the prior ultrasound from 07/24/2022 showed a simple-appearing cyst in the left ovary measuring up to 5.9 cm maximum dimension. A trace, physiologic amount of simple appearing free fluid is seen within the pelvic cul-de-sac. US/US pelvic and transvaginal IMPRESSION: Simple cyst of the left ovary measures up to 5.6 cm maximum dimension - a probable benign cyst. Patient is presenting with left-sided pelvic pain. Recommend pelvic ultrasound follow-up (e.g., US follow-up in 3-6 months), if deemed appropriate. Note that a cyst of the left ovary previously measured up to 5.9 cm maximum dimension. No evidence of ovarian torsion.
[2023-02-01 11:11] VITALS: BP 122/77; PULSE 66; RESP 18; TEMP 36.7; O2SAT 99; BMI 26.1
--- NOTE | 2023-02-01 11:15 | ED_ITS ---
HPI - General Adult General Chief complaint: Abdominal Pain Stated complaint: Ovarian pain/Kidney pain History of Present Illness HPI narrative: Left before completion of treatment by ED provider. Related Data Previous Rx's Medication Instructions Recorded norethindrone acetate 1 mg-ethinyl 1 tab PO DAILY #84 tabs 06/17/21 estradiol 20 mcg tablet (June) doxycycline hyclate 100 mg capsule 100 mg PO BID #28 caps 07/24/22 Allergies Allergy/AdvReac Type Severity Reaction Status Date / Time penicillamine Allergy Unknown facial Verified 07/24/22 09:31 swelling Penicillins [PENICILLINS] Allergy Unknown RASH Verified 07/24/22 09:31 [facility] Past Medical History Medical History (Updated 02/04/23 @ 18:40 by SARIKA Handley) Social anxiety disorder Lactose intolerance in adult History of vitamin D deficiency Anxiety and depression Migraine without aura Near syncope Menorrhagia Normochromic normocytic anemia Cyst Surgical History No significant past surgical history Family History Family History (Updated 02/22/22 @ 00:32 by Regina Zaman MD) Father Diabetes Mother Essential hypertension Substance use disorder Sister Mental health disorder Maternal Aunt Autistic disorder Other No family history of cancer Social History Social History Household Members: None Housing: Apartment Are you a primary wild animal caretaker to a significant other at home: No Do you presently have visiting nurse or other home services: No Alcohol intake: never Patient Tobacco Use Status: Never used Tobacco e-Cigarette/Vaping Use: Never Used Substance Use Type: Marijuana Advance Directives: No Advance Directives Information Provided: No service: No Current occupational status: employed Sexual orientation: Straight/Heterosexual Gender identity: Female Cognitive needs: No Hearing needs: No Vision needs: No Physical Exam ED Vital Signs: BMI result Body Mass Index 26.1 Course Course Course Narrative: RME: 22 yold female presents to the ED for left lower pelvic pain radiating towards left kidney. Patient states new dysuria. patient denies any nausea or vomitting. labs ordered. Medical Decision Making Lab Data 02/01/23 11:26 02/01/23 11:26 Labs: Lab Results 10/25/23 10/25/23 Range/Units 11:26 13:30 WBC 13.4 H (4.8-10.8) X10*3/uL RBC 4.43 (4.20-5.50) X10*6/uL Hgb 13.1 (12.0-16.0) g/dl Hct 40.4 (37.0-47.0) % MCV 91.2 (80.0-98.0) fL MCH 29.6 (27.0-33.0) pg MCHC 32.4 (31.0-35.0) g/dl RDW 13.0 (11.0-16.0) % Plt Count 364 (160-400) X10*3/uL MPV 9.2 L (9.4-12.3) fL Immature Gran % (Auto) 0.4 (0.0-0.4) % Neut % (Auto) 60.5 (45-73) % Lymph % (Auto) 28.6 (20-40) % [place] % (Auto) 7.1 (2-11) % Eos % (Auto) 3.1 (0-4) % Baso % (Auto) 0.3 (0-2) % Lymph # (Auto) 3.8 (1.2-4.9) X10*3/uL [place] # (Auto) 1.0 (0.1-1.2) X10*3/uL Eos # (Auto) 0.4 (0.0-0.4) X10*3/uL Baso # (Auto) 0.0 (0.0-0.2) X10*3/uL Abs Immat Gran (auto) 0.06 H (0.00-0.03) X10*3/uL Absolute Neuts (auto) 8.1 (2.0-8.3) x10*3/uL Absolute Nucleated RBC 0.000 (0.0-0.012) X10*3/uL Nucleated RBC % (auto) 0.0 (0.0-0.2) /100WBC Sodium 138 (135-145) mmol/L Potassium 4.2 (3.3-5.1) mmol/L Chloride 107 (96-108) mmol/L Carbon Dioxide 24 (22-29) mmol/L Anion Gap 11 L (12-20) BUN 17 H (9-16) mg/dL Creatinine 0.80 (0.5-1.4) mg/dL Estim Creat Clear Calc 100.4 Estimated GFR > 60 Random Glucose 81 (60-115) mg/dL Calcium 9.8 (8.4-10.2) mg/dL Total Bilirubin 0.6 (0.0-1.0) mg/dL AST 17 (5-31) U/L ALT 11 (0-31) U/L Alkaline Phosphatase 56 (39-117) U/L Total Protein 7.6 (6.5-8.0) g/dL Albumin 4.2 (3.5-5.0) g/dL Beta HCG, Quant < 2 mIU/mL Urine Color Yellow Urine Appearance Clear Urine pH 6.5 (5.0-9.0) Ur Specific [place] >= 1.030 H (1.005-1.025) Urine Protein Negative (Neg-Trace) mg/dL Urine Glucose (UA) Negative (Negative) mg/dL Urine Ketones Trace (Negative) mg/dL Urine Blood Negative (Negative) Urine Nitrite Negative (Negative) Ur Leukocyte Esterase Negative (Negative) Urine Test NEGATIVE (NEGATIVE) Discharge Plan Discharge Clinical Impression: Pelvic pain Patient Disposition: Left Without Being Seen Discharge Date/Time: 02/01/23 17:47
[2023-02-01 11:31] LABS: MANUAL DIFF FLAG NO
[2023-02-01 11:33] LABS: Basophils Percent Auto 0.3 % (0-2); Eosinophils Absolute Auto 0.4 X10*3/uL (0.0-0.4); Eosinophils Percent Auto 3.1 % (0-4); Hematocrit 40.4 % (37.0-47.0); Hemoglobin 13.1 g/dl (12.0-16.0); Imm Gran Abs Auto 0.06 X10*3/uL (0.00-0.03); Imm Gran Pct Auto 0.4 % (0.0-0.4); Lymphocytes Absolute Auto 3.8 X10*3/uL (1.2-4.9); Lymphocytes Percent Auto 28.6 % (20-40); Mean Corpuscular HGB Conc 32.4 g/dl (31.0-35.0); Mean Corpuscular Hemoglobin 29.6 pg (27.0-33.0); Mean Corpuscular Volume 91.2 fL (80.0-98.0); Mean Platelet Volume 9.2 fL (9.4-12.3); Monocytes Percent Auto 7.1 % (2-11); Neutrophils Absolute Auto 8.1 x10*3/uL (2.0-8.3); Neutrophils Percent Auto 60.5 % (45-73); Platelet Count 364 X10*3/uL (160-400); Red Blood Count 4.43 X10*6/uL (4.20-5.50); White Blood Count 13.4 X10*3/uL (4.8-10.8)
[2023-02-01 11:53] LABS: Alanine Aminotransferase 11 U/L (0-31); Albumin Level 4.2 g/dL (3.5-5.0); Alkaline Phosphatase 56 U/L (39-117); Anion Gap 11 (12-20); Aspartate Amino Transferase 17 U/L (5-31); Bilirubin Total 0.6 mg/dL (0.0-1.0); Blood Urea Nitrogen 17 mg/dL (9-16); Calcium 9.8 mg/dL (8.4-10.2); Carbon Dioxide 24 mmol/L (22-29); Chloride 107 mmol/L (96-108); Creatinine Clr Calc Pharmacy 100.4; Estimated Glomerular Filt Rate > 60; Glucose Random 81 mg/dL (60-115); HCG Quantitative < 2 mIU/mL; Potassium 4.2 mmol/L (3.3-5.1); Sodium 138 mmol/L (135-145); Total Protein 7.6 g/dL (6.5-8.0)
[2023-02-01 13:38] LABS: Appearance Urine Clear; Color Urine Yellow; Glucose Urine UA Negative (Negative); Leukocyte Esterase Urine Negative (Negative); Nitrite Urine Negative (Negative); PH 6.5 (5.0-9.0); Specific Gravity - Urine >= 1.030 (1.005-1.025); Urine Blood Negative (Negative); Urine Ketones Trace mg/dL (Negative); Urine Protein Negative (Neg-Trace)
[2023-02-01 13:39] LABS: UPreg QC Valid YES; Urine Pregnancy NEGATIVE (NEGATIVE)
== END 2023-02-01 17:47 | disposition left against medical advice (07) ==
PROVIDERS: Physician Assistant; Emergency Provider Emergency Medicine
DX: R10.2 Pelvic and perineal pain (principal)
CPT/HCPCS: 36415; 76830; 76856; 80053; 81003; 81025; 84702; 85025; 93975; 99282; 99284

== ENCOUNTER 2024-12-16 12:36 | Emergency (ER) | payer SELFPAY ==
--- NOTE | ~2024-12-16 | CT_ITS ---
EXAMINATION: CT HEAD WITHOUT CONTRAST CLINICAL INFORMATION: Head trauma, fall, syncope COMPARISON: None available. TECHNIQUE: Contiguous axial imaging was performed from the skull base to vertex without intravenous administration of contrast. This CT examination was performed using dose optimization techniques as appropriate, variously including the following: *Automated exposure control *Adjustment of mA and/or kV according to patient size (this includes techniques or standardized protocols for targeted exams where dose is matched to indication/reason for exam; i.e. extremities or head) *Use of iterative reconstruction technique DLP: 614 mGY*cm FINDINGS: There is no acute ischemic change. There is no intracranial hemorrhage. There is no mass-effect or midline shift. Basal cisterns and ventricles are within normal limits for age/cerebral volume. Orbits are symmetrical and unremarkable. Paranasal sinuses and mastoid air cells are pneumatized. There are no bony abnormalities. CT/CT head/brain wo IV con IMPRESSION: No acute intracranial abnormality. Electronically signed by: Tristan Nicole MD 12/16/2024 01:57 PM EDT
--- NOTE | ~2024-12-16 | XR_ITS ---
EXAMINATION: XR CHEST CLINICAL INFORMATION: fall, syncope COMPARISON: None available. TECHNIQUE: 2 views of the chest were obtained. FINDINGS: No consolidation pleural effusion or pneumothorax. No hyperinflation. Cardiomediastinal silhouette size is normal. Osseous structures are intact. XR/XR chest 2V IMPRESSION: Normal chest x-ray. Electronically signed by: Bin Puga MD 12/16/2024 02:25 PM EDT
[2024-12-16 13:01] VITALS: BP 119/67; PULSE 55; RESP 16; TEMP 36.4; O2SAT 100; BMI 24.1
--- NOTE | 2024-12-16 13:03 | ED.GENADULT ---
HPI - General Adult General Chief complaint: Head Injury Stated complaint: fall, LOC. Motor skill, memory loss Time Seen by Provider: 12/16/24 14:20 Source: patient Mode of arrival: ambulatory Limitations: no limitations History of Present Illness ED Provider: Dr. Wilks [facility] narrative: This is a 24-year-old female presented hospital today for evaluation of difficult wheel concentration, paresthesia. Patient stated that she had a syncopal episode in the shower on Monday night. She did strike her head against a wall. She does have history of syncope in the past. This for next couple of days she has been having trouble focusing. Patient stated she has been having some trouble with performing test due to this problem. She presents to the ER for further evaluation. Related Data Previous Rx's ?Medication ?Instructions ?Recorded norethindrone acetate 1 mg-ethinyl 1 tab PO DAILY #84 tabs 06/17/21 estradiol 20 mcg tablet (Junel) doxycycline hyclate 100 mg capsule 100 mg PO BID #28 caps 07/24/22 Allergies Allergy/AdvReac Type Severity Reaction Status Date / Time penicillamine Allergy Unknown facial Verified 12/16/24 13:04 swelling Penicillins (PENICILLINS) Allergy Unknown RASH Verified 12/16/24 13:04 Review of Systems Review of Systems: Pertinent review of systems as mentioned in HPI. All other system otherwise negative. [facility] Past Medical History [facility] Narrative: Medical history as mentioned in HPI Medical History (Updated 12/16/24 @ 15:11 by Gayle Wilks DO) Social anxiety disorder Lactose intolerance in adult History of vitamin D deficiency Anxiety and depression Migraine without aura Near syncope Menorrhagia Normochromic normocytic anemia Cyst Surgical History No significant past surgical history Family History Family History (Updated 02/22/22 @ 00:32 by Regina Zaman MD) Father Diabetes Mother Essential hypertension Substance use disorder Sister Mental health disorder Maternal Aunt Autistic disorder Other No family history of cancer Social History Social History Household Members: None Housing: Apartment Are you a primary attending ambulatory care to a significant other at home: No Do you presently have visiting nurse or other home services: No Alcohol intake: never Patient Tobacco Use Status: Never used Tobacco e-Cigarette/Vaping Use: Never Used Substance Use Type: Marijuana Advance Directives: No Advance Directives Information Provided: Yes Do you have a plan to hurt others: No Plan service: No Current occupational status: employed Sexual orientation: Straight/Heterosexual Gender identity: Female Cognitive needs: No Hearing needs: No Vision needs: No Physical Exam ED Exam Exam: General: Pleasant, no distress, interacting appropriately Head: Normacephalic, atraumatic ENT: oral mucosa moist, neck supple, no tracheal deviation Extremities: No limb pain or swelling, no calf tenderness Neurological: Awake and alert, no facial droop noted, good strength in upper and lower extremity no sign of ataxia. Pupils PERRLA, EOMI sensation is intact bilaterally. Skin: Warm and dry Psychiatric: Appropriate mood and thoughts Vital Signs: Vital Signs - 24 hr 12/16/24 13:01 12/16/24 15:04 12/16/24 15:11 Temperature 97.5 F 98.3 F 98.3 F Pulse Rate 55 56 56 Respiratory Rate 16 14 14 Blood Pressure 119/67 115/71 115/71 Pulse Oximetry 100 100 100 Oxygen Delivery Method Room Air Room Air Room Air BMI result Body Mass Index 24.1 Course Course Course Narrative: Rapid medical examination performed in triage by Lanny Watts PA-C. Patient is a 24 year old assigned female at presenting to the emergency department with syncope and a head strike. Detailed physical exam and review of systems are deferred to the meter tester primary. EKG, labs, imaging, and swabs ordered. Patient placed back in the waiting room pending room availability and results. Medical Decision Making Medical Decision Making [facility] Narrative: This is a 24-year-old female presented hospital today after closed head injury on Monday with cognitive difficulty after her injury. Suspect patient likely has a concussion. Given her history CT imaging was performed. No sign patient had chest x-ray performed which is normal. Lab work did show mild leukocytosis 13.4, patient's chemistries unremarkable. UA did not show any signs of significant abnormality. At this time patient appears to be well and stable. Patient will be discharged. Differential Diagnosis Differential Diagnoses: The differential diagnosis associated with the presentation includes Cranial bleed, concussion, epidural hematoma Lab Data [facility] Lab Attestation statement: I reviewed the patient's lab results. 12/16/24 13:15 12/16/24 13:15 Labs: Lab Results 12/16/24 12/16/24 Range/Units 13:15 14:16 WBC 13.4 H (4.8-10.8) X10*3/uL RBC 4.47 (4.20-5.50) X10*6/uL Hgb 13.0 (12.0-16.0) g/dl Hct 39.4 (37.0-47.0) % MCV 88.1 (80.0-98.0) fL MCH 29.1 (27.0-33.0) pg MCHC 33.0 (31.0-35.0) g/dl RDW 13.5 (11.0-16.0) % Plt Count 317 (160-400) X10*3/uL MPV 9.6 (9.4-12.3) fL Immature Gran % (Auto) 0.3 (0.0-0.4) % Neut % (Auto) 58.4 (45-73) % Lymph % (Auto) 30.5 (20-40) % [place] % (Auto) 7.6 (2-11) % Eos % (Auto) 2.8 (0-4) % Baso % (Auto) 0.4 (0-2) % Lymph # (Auto) 4.1 (1.2-4.9) X10*3/uL [place] # (Auto) 1.0 (0.1-1.2) X10*3/uL Eos # (Auto) 0.4 (0.0-0.4) X10*3/uL Baso # (Auto) 0.1 (0.0-0.2) X10*3/uL Abs Immat Gran (auto) 0.04 H (0.00-0.03) X10*3/uL Absolute Neuts (auto) 7.9 (2.0-8.3) x10*3/uL Absolute Nucleated RBC 0.000 (0.0-0.012) X10*3/uL Nucleated RBC % (auto) 0.0 (0.0-0.2) /100WBC PT 11.7 (10.9-12.4) SEC INR 1.0 (0.9-1.1) Sodium 138 (135-145) mmol/L Potassium 4.2 (3.3-5.1) mmol/L Chloride 108 (96-108) mmol/L Carbon Dioxide 23 (22-29) mmol/L Anion Gap 11 L (12-20) BUN 23 H (9-16) mg/dL Creatinine 0.86 (0.5-1.4) mg/dL Estim Creat Clear Calc 82.7 Estimated GFR > 60 Random Glucose 80 (60-115) mg/dL Calcium 9.5 (8.4-10.2) mg/dL Magnesium 1.9 (1.6-2.6) mg/dL Total Bilirubin 0.4 (0.0-1.0) mg/dL AST 34 H (5-31) U/L ALT 17 (0-31) U/L Alkaline Phosphatase 53 (39-117) U/L Troponin I High Sens < 2.7 (<3.5-17.0) ng/L Total Protein 7.7 (6.5-8.0) g/dL Albumin 4.4 (3.5-5.0) g/dL Beta HCG, Quant < 2 mIU/mL Urine Color Yellow Urine Appearance Clear Urine pH 5.5 (5.0-9.0) Ur Specific [place] 1.025 (1.005-1.025) Urine Protein Negative (Neg-Trace) mg/dL Urine Glucose (UA) Negative (Negative) mg/dL Urine Ketones Negative (Negative) mg/dL Urine Blood Negative (Negative) Urine Nitrite Negative (Negative) Ur Leukocyte Esterase Negative (Negative) COVID-19 (ROXANNE) Negative (Negative) COVID-19 Clin Com See Note Influenza Type A (ESTIVEN) Negative (Negative) Influenza Type B (ESTIVEN) Negative (Negative) Influenza A & B Note See Note Independent Interpretation I performed an independent interpretation of an: Plain X-Ray and CT Scan Radiology Impression Discussion of test interpretation with radiology: I have reviewed the radiologist's reading. Discharge Plan Discharge Clinical Impression: Closed head injury Qualifiers: Encounter type: initial encounter Qualified Code(s): S09.90XA - Unspecified injury of head, initial encounter Concussion without loss of consciousness Qualifiers: Encounter type: initial encounter Qualified Code(s): S06.0X0A - Concussion without loss of consciousness, initial encounter Patient Disposition: Home, Self-Care Instructions: Concussion (ED) Prescriptions: No Action doxycycline hyclate 100 mg capsule 100 mg PO BID Qty: 28 0RF norethindrone ac-eth estradiol [04/29 ()] 1-20 mg-mcg tablet 1 tab PO DAILY Qty: 84 3RF Stand Alone Forms: Work/School Release Interventions: ED Discharge Assessment Last Done: 12/16/24 15:11 Print Language: [place] Islander
--- NOTE | 2024-12-16 13:04 | ECG_ITS ---
Test Reason : SYNCOPE Blood Pressure : */* mmHG Vent. Rate : 56 BPM Atrial Rate : 56 BPM P-R Int : 122 ms QRS Dur : 100 ms QT Int : 402 ms P-R-T Axes : -11 -14 -10 degrees QTcB Int : 387 ms Sinus bradycardia Otherwise normal ECG No previous ECGs available Referred By: Lanny Watts Electronically Signed By: MAICO MANLEY MD
[2024-12-16 13:20] LABS: MANUAL DIFF FLAG NO
[2024-12-16 13:22] LABS: Hematocrit 39.4 % (37.0-47.0); Hemoglobin 13.0 g/dl (12.0-16.0); Imm Gran Abs Auto 0.04 X10*3/uL (0.00-0.03); Imm Gran Pct Auto 0.3 % (0.0-0.4); Lymphocytes Absolute Auto 4.1 X10*3/uL (1.2-4.9); Mean Corpuscular HGB Conc 33.0 g/dl (31.0-35.0); Mean Corpuscular Hemoglobin 29.1 pg (27.0-33.0); Mean Corpuscular Volume 88.1 fL (80.0-98.0); NRBC Abs Auto 0.000 X10*3/uL (0.0-0.012); NRBC Pct Auto 0.0 /100WBC (0.0-0.2); Platelet Count 317 X10*3/uL (160-400); Red Blood Count 4.47 X10*6/uL (4.20-5.50); White Blood Count 13.4 X10*3/uL (4.8-10.8)
[2024-12-16 13:28] LABS: INTERNATIONAL NORM RATIO 1.0 (0.9-1.1); Prothrombin Time 11.7 SEC (10.9-12.4)
[2024-12-16 13:43] LABS: Alanine Aminotransferase 17 U/L (0-31); Albumin Level 4.4 g/dL (3.5-5.0); Alkaline Phosphatase 53 U/L (39-117); Anion Gap 11 (12-20); Aspartate Amino Transferase 34 U/L (5-31); Blood Urea Nitrogen 23 mg/dL (9-16); Calcium 9.5 mg/dL (8.4-10.2); Carbon Dioxide 23 mmol/L (22-29); Chloride 108 mmol/L (96-108); Creatinine Clr Calc Pharmacy 82.7; Estimated Glomerular Filt Rate > 60; Magnesium 1.9 mg/dL (1.6-2.6); Potassium 4.2 mmol/L (3.3-5.1); Sodium 138 mmol/L (135-145); Total Protein 7.7 g/dL (6.5-8.0)
[2024-12-16 13:48] LABS: COVID-19 Test Negative (Negative); IDNOW Serial# 55D5AD1C; IDNOW Serial# 58CA691E; Influenza B2 Negative (Negative); Troponin-I High Sensitivity < 2.7 ng/L (<3.5-17.0)
[2024-12-16 14:24] LABS: Appearance Urine Clear; Glucose Urine UA Negative (Negative); PH 5.5 (5.0-9.0); Specific Gravity - Urine 1.025 (1.005-1.025)
[2024-12-16 15:04] VITALS: BP 115/71; PULSE 56; RESP 14; TEMP 36.8; O2SAT 100
[2024-12-16 15:11] VITALS: BP 115/71; PULSE 56; RESP 14; TEMP 36.8; O2SAT 100
--- OUTSIDE RECORDS SUMMARY | 2024-12-16 16:19 | XMS_ITS | Encounter Summary ---
Author Organization [facility] Address [address] [place] [id number] Phone Care Team Providers Care Hacksaw Inspector Name Role Phone Margret Chinchilla MD Primary Care Provider [phone] Encounter Details Date Type Department Care Team (Late st Contact Info) Description 11/24/2016 Conversion Encounter [facility] [place] [address] [place] [address] Social History Tobacco Use Types Packs/Day Years Used Date Smoking Tobacco: Never Comments:Never smoker Comments Unknown Sex and Gender Information Value Date Recorded Sex Assigned at Not on file Legal Sex Female 5:22 PM EDT Gender Identity Not on file Sexual Orientation Not on file documented as of this encounter Plan of Treatment Not on file documented as of this encounter Visit Diagnoses Not on filedocumented in this encounter Care Teams Hacksaw Inspector Relationship Specialty Start Date End Date Margret Chinchilla MD [address] [place] [address] PCP - General 11/18/16 06/08/22 documented as of this encounter
--- OUTSIDE RECORDS SUMMARY | 2024-12-16 16:19 | XMS_ITS | Clinical Summary ---
Author Organization [facility] Address [address] [place] [id number] Phone Care Team Providers Care Seismic Prospecting Observer Helper Name Role Phone Unavailable Primary Care Provider Unavailabl e Allergies No known active allergies Medications No known medications Active Problems Problem Noted Date Diagnosed Date Iron deficiency anemia due to chronic blood loss 12/28/2015 Menorrhagia with irregular cycle 12/28/2015 Immunizations Immunization Administration Dates Next Due DTaP 5 02/02/2004, 1,06/07/2000,03/09,01/08/2000 HPV, Quadrivalent 10/28/2011,12/30/2010,10/29/19 11 Hep A, ped/adol 12/13/2013,10/28/2010 Hep B, ped/adol 10/07/2000,01/08/2000,1999 Hib (PRP-T) 03/27/2001, 1,03/09/2000,01/07 IPV 02/02/2004, 1,03/09/2000,01/07 Influenza Split 03/02/2010 Influenza, injectable, MDCK, preservative free, quadrivalent 06/08/2016 Influenza, injectable, quadr ivalent, preservative free 01/10/2017,12/23/2014,12/13/2013 Influenza, intranasal, trivalent 12/30/2010 MMR 02/02/2004,11/07/2000 Meningococcal Conj (Menactra) MCV4P 06/08/2016,0 10/28/2010 Pneumococcal Conjugate 06/26/2001,03/27/2001 Tdap 10/28/2010 Varicella 09/21/2007,11/07/2000 Family History Relation Name Status Comments Father Father: Diabete s mellitus Other No family histo ry of Developmental dislocation of hip, Family history of Obesity, No family history of Deafness, Family history of *Dental caries, Family history of Migraines, Family history of Seizure disorder, No family history of *CVA/Stroke, No family history of *Sudden /[place] under 55, No family history of *Heart Disease, Family history of Asthma, Family history of Migraines, No family history of *Thrombophilia, No family history of ADD/ADHD, , No family history of Cancer, No family history of Strabismus, Family history of Hyperlipidemia Social History Tobacco Use Types Packs/Day Years Used Date Smoking Tobacco: Never Comments:Never smoker Comments No Sex and Gender Information Value Date Recorded Sex Assigned at Not on file Legal Sex Female 5:22 PM EDT Gender Identity Not on file Sexual Orientation Not on file Last Filed Vital Signs Vital Sign Reading Time Taken Comments Blood Pressure 117/76 03/07/2017 11:24 AM EST Pulse 82 03/07/2017 11:24 AM EST Temperature 36.6 C (97.9 F) 03/07/2017 11:24 AM EST Respiratory Rate - - Oxygen Saturation - - Inhaled Oxygen Concentration - - Weight 60.1 kg (132 lb 6.4 oz) 03/07/2017 11:24 AM EST Height 158.8 cm (5' 2.5 ) 06/08/2016 12:00 AM ES T Body Mass Index - - Plan of Treatment Health Maintenance Due Date Last Done Comments DTaP,Tdap,and Td Vaccines (7 - Td or Tdap) 10/28/2020 10/28/2010, 02/02/2004, 03/27/2001, Additional history exists Influenza Vaccines (#1) 2024 01/11/20 17, 06/08/2016, 12/23/2014, Additional history exists COVID-19 Vaccine ( season) 2024 Hepatitis B Vaccines Completed 10/07/2000, 01/08/2000, 1999 HIB Vaccines Completed 03/27/2001, 05/12, 03/09/2000, Additional history exists Pneumococcal Vaccine Completed 06/26/2001, 03/27/20 IPV Vaccines Completed 02/02/2004, 05/12, 03/09/2000, Additional history exists MMR Vaccines Completed 02/02/2004, 11/07/2000 Varicella Vaccines Completed 09/21/2007, 11/07/2000 HPV Vaccines Completed 10/28/2011, 12/10, 10/28/2010 Hepatitis A Vaccines Completed 12/13/2013, 10/29/19 11 Meningococcal Vaccine Completed 06/08/2016, 011 Men B Vaccine Aged Out No longer elig ible based on patient's age to complete this topic Insurance [facility]
--- OUTSIDE RECORDS SUMMARY | 2024-12-16 16:19 | XMS_ITS | Encounter Summary ---
Author Organization [facility] Address [address] [place] [id number] Phone Care Team Providers Care Sling Operator Name Role Phone Margret Chinchilla MD Primary Care Provider [phone] Encounter Details Date Type Department Care Team (Late st Contact Info) Description 05/17/2012 Documentation [facility] [place] Family Medicine [address] [place] [address] Family Medicine, Physician [address] [place], [place] [id number] Social History Tobacco Use Types Packs/Day Years Used Date Smoking Tobacco: Never Assessed Comments Unknown Sex and Gender Information Value Date Recorded Sex Assigned at Not on file Legal Sex Female 5:22 PM EDT Gender Identity Not on file Sexual Orientation Not on file documented as of this encounter Plan of Treatment Not on file documented as of this encounter Visit Diagnoses Not on filedocumented in this encounter Care Teams Sling Operator Relationship Specialty Start Date End Date Margret Chinchilla MD [address] [place] [address] RAJEEV Bush [id number] PCP - General 11/18/16 06/08/22 documented as of this encounter
--- OUTSIDE RECORDS SUMMARY | 2024-12-16 16:19 | XMS_ITS | Encounter Summary ---
Author Organization [facility] Address [address] [place] [id number] Phone Care Team Providers Care Mail Truck Driver Name Role Phone Margret Chinchilla MD Primary Care Provider [phone] Encounter Details Date Type Department Care Team (Late st Contact Info) Description 06/29/2012 Documentation [facility] [place] [address] [place] [address] Family Medicine, Physician [address] [place], [place] [id number] Social History Tobacco Use Types Packs/Day Years [...] on filedocumented in this encounter Care Teams Mail Truck Driver Relationship Specialty Start Date End Date Margret Chinchilla MD [address] [place] [address] RAJEEV Bush [id number] PCP - General 11/18/16 06/08/22 documented as of this encounter
--- OUTSIDE RECORDS SUMMARY | 2024-12-16 16:19 | XMS_ITS | Encounter Summary ---
Author Organization [facility] Address [address] [place] [address] Phone Care Team Providers Care District Branch Manager Name Role Phone Margret Chinchilla MD Primary Care Provider [phone] Encounter Details Date Type Department Care Team (Late st Contact Info) Description 11/09/2012 Documentation [facility] [place] Family Medicine [address] [place] [address] Family Medicine, Physician [address] [place], [place] [id number] Social History Tobacco Use Types Packs/Day Years [...] on filedocumented in this encounter Care Teams District Branch Manager Relationship Specialty Start Date End Date Margret Chinchilla MD [address] [place] [address] RAJEEV Bush [id number] PCP - General 11/18/16 06/08/22 documented as of this encounter
== END 2024-12-16 15:24 | disposition home or self-care (01) ==
PROVIDERS: Physician Assistant Medical; Emergency Provider Student in an Organized Health Care Education/Training Program
DX: S06.0X0A Concussion without loss of consciousness, initial encounter (principal); W22.01XA Walked into wall, initial encounter; Y93.89 Activity, other specified; Y92.9 Unspecified place or not applicable; Y99.9 Unspecified external cause status; R55 Syncope and collapse; R20.2 Paresthesia of skin; Z03.818 Encounter for observation for suspected exposure to other biological agents ruled out
CPT/HCPCS: 70450; 71046; 80053; 81003; 83735; 84484; 84702; 85025; 85610; 87502; 87635; 93005; 99284

== ENCOUNTER → 2024-12-16 13:04 | Outpatient (BNV) | payer SELFPAY | PROVIDERS: Emergency Provider Student in an Organized Health Care Education/Training Program; Visit Provider Internal Medicine Cardiovascular Disease | DX: R00.1 Bradycardia, unspecified (principal) | CPT/HCPCS: 93010 ==

== ENCOUNTER → 2024-12-16 13:04 | Outpatient (BNV) | payer SELFPAY | PROVIDERS: Visit Provider Radiology Diagnostic Radiology | DX: S09.90XA Unspecified injury of head, initial encounter (principal); R55 Syncope and collapse | CPT/HCPCS: 70450; 71046 ==